=== PATIENT | male | born 1975 | race Hispanic/Latino ===

== ENCOUNTER 2019-10-28 23:45 | Emergency (ER) | payer MEDICARE, MEDICAID, SELFPAY ==
--- NOTE | ~2019-10-28 | XR_ITS ---
EXAMINATION: XR chest 2V DATE: 10/29/2019 00:43 INDICATION: Chronic cough TECHNIQUE: PA and lateral views of the chest are obtained. COMPARISON: 01/03/2019 FINDINGS: The lungs are free of acute opacities. There is no pleural effusion or pneumothorax. The ca rdiomediastinal silhouette is normal. The visualized bones and soft tissues are unremarkable. IMPRESSION: 1. No acute cardiopulmonary abnormality. Reviewed, dictated and finalized at location A.
[2019-10-28 23:49] VITALS: BP 160/97; PULSE 81; RESP 20; TEMP 36.6; O2SAT 100
--- NOTE | 2019-10-29 00:17 | ECG_ITS ---
Measurements Intervals [place] Rate: 70 P: 58 NM: 150 QRS: 52 QRSD: 101 T: 36 QT: 367 QTc: 398 Interpretive Statements SINUS RHYTHM INCOMPLETE RIGHT BUNDLE BRANCH BLOCK BORDERLINE ECG Electronically Signed On 10-29-2019 8:36:05 CDT by Jiame Mckeon D.O.
--- NOTE | 2019-10-29 00:19 | ED.WEAKNESS ---
HPI - Weakness General Chief complaint: Weakness Stated complaint: weakness Time Seen by Provider: 10/28/19 23:51 Source: patient Mode of arrival: ambulatory Limitations: no limitations History of Present Illness HPI Narrative: Patient is a 44-year-old male who presents to the emergency department with complaint of generalized weakness. Patient reports history of intermittent episodes of the symptoms for the past 3 to 4 years. Patient does not have a primary care physician and has not seen a primary care in quite some time. Patient reports having episode where he feels fatigued, weak, and dizzy. Patient checked his blood sugar and it was 102 at that time of the episode. Patient ate some crackers and drink some juice and feels a little bit better. Patient denies any chest pain. He does report a chronic smoker's cough which he states has felt worse over the past month. Patient states it almost feels as though his lungs have water in them and he notices some wheezing. Patient denies any fever. He is denying any chest pain, abdominal pain, nausea, or vomiting. Patient reports noticing a burning sensation on the top of his head that is only present when he touches the top of his head. He denies any pain otherwise or headache. Patient is feeling somewhat better at this time. Complaint: generalized weakness Duration: intermittent and improved Location: generalized Related Data Home Medications Medication Instructions Recorded Confirmed No Home Medications 10/28/19 10/28/19 Allergies Allergy/AdvReac Type Severity Reaction Status Date / Time No Known Allergies Allergy Verified 10/28/19 23:54 Review of Systems Review of Systems: All systems reviewed & are unremarkable except as noted in HPI and below Constitutional: Constitutional: Reports fatigue, Denies fever(s) and Reports weakness Cardiovascular: Cardiovascular: Denies chest pain Respiratory: Respiratory: Reports cough, Denies dyspnea and Reports wheezing Gastrointestinal: Gastrointestinal: Denies abdominal pain, Denies diarrhea, Denies nausea and Denies vomiting PMF Past Medical History Medical History (Updated 10/29/19 @ 03:42 by Akosua Mtz MD) No significant past medical history Social History Social History (Updated 10/29/19 @ 00:24 by Akosua Mtz MD) Smoking packs per day: 1 Smoking cigarettes per day: 20.0 Years smoked: 25 Smoking pack-years: 25.00 Smoking status: Current every day smoker Exam Const: General: cooperative, no acute distress and alert Nutritional Appearance: well nourished Orientation/consciousness: patient oriented x3 Limitations: no limitations HENMT: Mouth: Yes lip normal and Yes moist mucous membranes Resp: Effort & Inspection: normal respiratory effort Auscultation: clear to auscultation bilaterally Cardio: Rate: regular rate Rhythm: regular rhythm GI: GI Palp: Yes Soft to palpation and No Tenderness to palpation present (GI) Auscultation: normal bowel sounds Skin: General skin exam: normal color Neuro: General: patient oriented x3 Cognition (Neuro): normal cognition Speech: normal speech Extrem: General: normal to inspection, full ROM and no clubbing, cyanosis or edema Psych: Mental Status: mental status grossly normal Affect: normal affect Attitude: cooperative Course Course Emergency Course: Patient asymptomatic on reevaluation. Labs unremarkable including troponin x2. Patient advised to follow-up with on-call primary care physician for further evaluation of his recurrent symptoms. Patient stable for outpatient evaluation. Blood pressure improved on reevaluation. Vital Signs Vital signs: Vital Signs Temperature 97.8 F 10/28/19 23:49 Pulse Rate 81 10/28/19 23:49 Respiratory Rate 20 10/28/19 23:49 Blood Pressure 160/97 H 10/28/19 23:49 Pulse Oximetry 100 10/28/19 23:49 Temperature 97.8 F 10/28/19 23:49 Pulse Rate 60 10/29/19 02:41 Resp
[2019-10-29 00:22] VITALS: BP 145/90; PULSE 71
[2019-10-29 00:24] VITALS: BP 152/96; PULSE 72
[2019-10-29 00:25] VITALS: BP 136/102; PULSE 78
[2019-10-29 00:36] LABS: Basophils Absolute Auto 0.1 K/mm3 (0.0-0.1); Basophils Percent Auto 0.6 % (0.2-1.2); Eosinophils Absolute Auto 0.2 K/mm3 (0-0.3); Eosinophils Percent Auto 2.9 % (0-4.4); Hematocrit 43.2 % (42.0-52.0); Hemoglobin 14.4 g/dL (14.0-18.0); Immature Granulocyte Absolute 0.03 K/mm3 (0.00-0.031); Immature Granulocyte Percent A 0.4 % (0-0.5); Lymphocytes Absolute Auto 2.45 K/mm3 (0.9-3.2); Lymphocytes Percent Auto 29.5 % (18.3-44.2); Mean Corpuscular HGB Conc 33.3 g/dl (32-36); Mean Platelet Volume 11.4 fl (7.4-10.4); Monocytes Absolute Auto 0.5 K/mm3 (0.1-0.6); Monocytes Percent Auto 5.9 % (2.6-8.5); Neutrophils Percent Auto 60.7 % (45.5-73.1); Platelet Count Result 231 k/mm3 (150-375); Red Cell Distribution Width 13.5 % (11.5-14.5); White Blood Count 8.3 K/mm3 (4.5-10.0)
[2019-10-29 00:52] LABS: Alanine Aminotransferase 17 U/L (4-50); Albumin Level 4.5 g/dL (3.5-5.1); Alkaline Phosphatase 87 U/L (38-126); Aspartate Amino Transferase 30 U/L (17-59); Bilirubin,Total 0.3 mg/dL (0.2-1.3); Blood Urea Nitrogen 14 mg/dL (9-20); Calcium 9.2 mg/dL (8.4-10.2); Carbon Dioxide 29 mmol/L (22-30); Chloride 106 mmol/L (98-107); Estimated Glomerular Filt Rate > 60; Glucose 113 mg/dL (75-110); Magnesium 2.1 mg/dL (1.6-2.3); Sodium 141 mmol/L (137-145)
[2019-10-29 00:52] LABS: Add Urine Microscopic? NO; Appearance Urine Clear (Clear); Bilirubin Urine Negative (Negative); Blood Urine Negative (Negative); Color Urine Straw (Yellow); Glucose Urine UA Negative (Negative); Ketones Urine Negative (Negative); Leukocyte Esterase Ur Negative LEU/UL (Negative); Nitrate Urine Negative (Negative); Protein Urine Negative (Negative); Specific Grav Ur 1.009 (1.001-1.035); Urobilinogen Urine Negative mg/dL (<2.0)
[2019-10-29 01:04] LABS: NT Pro B Type Natriuretic Pept 26 PG/ML (5-100); Troponin I < 0.012 ng/mL (0.000-0.034)
[2019-10-29 01:44] VITALS: BP 137/83; PULSE 71; RESP 20; O2SAT 98
[2019-10-29 02:41] VITALS: BP 135/85; PULSE 60; RESP 20; O2SAT 99
[2019-10-29 03:23] LABS: Troponin I < 0.012 ng/mL (0.000-0.034)
[2019-10-29 03:53] VITALS: BP 136/85; PULSE 64; RESP 20; O2SAT 100
== END 2019-10-29 03:55 | disposition home or self-care (01) ==
PROVIDERS: Emergency Provider Emergency Medicine
DX: R42 Dizziness and giddiness (principal); R05 Cough; I45.10 Unspecified right bundle-branch block; F17.210 Nicotine dependence, cigarettes, uncomplicated
CPT/HCPCS: 36415; 71046; 80053; 81003; 83735; 83880; 84443; 84484; 85025; 93005; 99284

== ENCOUNTER 2020-06-25 21:16 | Emergency (ER) | payer MEDICARE, MEDICAID, SELFPAY ==
--- NOTE | ~2020-06-25 | CT_ITS ---
EXAMINATION: CT abdomen pelvis w con DATE: 06/25/2020 22:29 INDICATION: Left-sided abdominal pain. Rectal bleeding. TECHNIQUE: Computed tomography (CT) of the abdomen and pelvis was performed with 100 cc Omnipaque 350 intravenous contrast. The dose-length product was 929.74 mGy-cm. Automated exposure control and iter ative reconstruction technique were employed. COMPARISON: None. FINDINGS: Lung bases are unremarkable. Heart size normal. No significant pleural or pericardial effus ion. No significant vascular abnormality. There is mild inguinal lymphadenopathy, likely reactive. The liver, adrenal glands, pancreas, and kidneys are unremarkable. There is a 1 cm hypovascular mass of the spleen, likely benign. Gallbladder is contracted. Nonobstructive bowel gas pattern. No free ai r or free fluid. No focal bowel abnormalities. No acute osseous abnormality. IMPRESSION: 1. No acute abdominal abnormality. Reviewed, dictated and finalized at location A. ON FARMWORKER
--- NOTE | ~2020-06-25 | XR_ITS ---
EXAMINATION: XR chest 2V 06/25/2020 22:34 INDICATION: Chest pain protocol PROCEDURE: PA and lateral views of the chest COMPARISON: 10/29/2019 FINDINGS: The lungs are clear. The cardiomediastinal silhouette is within normal limits. There are no pleural effusions. There is no pneumothorax suspected. IMPRESSION: 1: NO ACUTE CARDIOPULMONARY DISEASE. Reviewed, dictated and finalized at location A. LEGAL SPECIALIST
--- NOTE | 2020-06-25 21:18 | ED.CHESTPAIN ---
HPI - Chest Pain General Chief Complaint: Chest Pain Stated Complaint: chest pain, rectal bleeding Time Seen by Provider: 06/25/20 21:18 Source: patient Mode of arrival: ambulatory Limitations: no limitations History of Present Illness HPI narrative: Patient is a 45-year-old male who presents for evaluation of bright red bleeding per rectum as well as chest pain. Patient states that he had some left-sided abdominal pain after eating this evening, and then felt the urge to have a bowel movement, when he went to the bathroom he noticed there was bright red blood in the toilet bowl and blood coating his stool. He denied dark or tarry stool. Patient states he then wiped and there was blood present on the toilet paper and running down his legs. Patient took a shower and began to experience some shortness of breath, chest pain. Patient states he felt he was seeing spots. He denied any diaphoresis, nausea, vomiting, back pain or shoulder pain. No arm pain or discomfort. Patient states symptoms lasted around 10 to 15 minutes, and resolved on the way to the hospital. Patient currently denies any chest pain. He denies any abdominal pain. No recent fever, chills or recent illnesses. No history of ibuprofen use, iron use, any anticoagulation. He states he does have a remote history of H. pylori many years ago from when he lived in [place] but no sequelae from that. He smokes but has no history of cardiac disease to his knowledge. He has never had a stress test or colonoscopy. Related Data Home Medications Medication Instructions Recorded Confirmed No Home Medications 10/28/19 10/28/19 Allergies Allergy/AdvReac Type Severity Reaction Status Date / Time No Known Allergies Allergy Verified 10/28/19 23:54 Review of Systems Review of Systems: Narrative: CONSTITUTIONAL: Denies fever, chills, or sweats. EYES: Denies visual changes, redness, or discharge. ENT: Denies rhinorrhea, congestion, sore throat, or otalgia. CARDIOVASCULAR: Denies current chest pain, palpitations, or edema. RESPIRATORY: Denies cough or dyspnea. GASTROINTESTINAL: Denies abdominal pain, nausea, vomiting, or diarrhea. GENITOURINARY: Denies dysuria or hematuria. SKIN: Denies rash or itching. MUSCULOSKELETAL: Denies back pain, joint pain, or myalgia. NEUROLOGIC: Denies headache, numbness, or weakness. [facility] Past Medical History Medical History (Updated 06/26/20 @ 00:55 by Lazara Wong MD) H. pylori infection Social History Social History Smoking packs per day: 1 Smoking cigarettes per day: 20.0 Years smoked: 25 Smoking pack-years: 25.00 Smoking status: Current every day smoker Gender identity (if verbalized by the patient): Male Exam Narrative: Exam Narrative: GENERAL: Awake, alert, conversant HEAD: Normocephalic, atraumatic. EYES: PERRLA and EOMI. ENT: Nares clear, no rhinorrhea or epistaxis. Mucous membranes moist. NECK: Supple. CHEST: No respiratory distress, breathing even and non labored HEART: Regular rate, sinus rhythm ABDOMEN:Non distended, non tender : Good rectal tone, no melena. No hemorrhoids. No fissures. No gross blood. No melanotic stool. Guaic negative. EXTREMITIES: Normal range of motion. No edema. SKIN: Warm, dry, no rash. NEURO:No focal deficits. Alert and oriented x3 Course Vital Signs Vital signs: Vital Signs Temperature 37.2 C 06/25/20 21:19 Pulse Rate 89 06/25/20 21:19 Respiratory Rate 17 06/25/20 21:19 Blood Pressure 176/97 H 06/25/20 21:19 Pulse Oximetry 100 06/25/20 21:19 Temperature 37.2 C 06/25/20 21:19 Pulse Rate 76 06/26/20 00:45 Respiratory Rate 20 06/26/20 00:45 Blood Pressure 125/113 H 06/26/20 00:45 Pulse Oximetry 98 06/26/20 00:45 MDM - Chest Pain MDM Narrative Medical decision making narrative: Patient presented for evaluation of bright red rectal bleeding and subsequently some chest jackson
[2020-06-25 21:19] VITALS: BP 176/97; PULSE 89; RESP 17; TEMP 37.2; O2SAT 100
--- NOTE | 2020-06-25 21:26 | ECG_ITS ---
Measurements Intervals [place] Rate: 87 P: 54 SC: 136 QRS: 41 QRSD: 102 T: 50 QT: 345 QTc: 416 Interpretive Statements SINUS RHYTHM INCOMPLETE RIGHT BUNDLE BRANCH BLOCK BASELINE WANDER- I, II, AVR, AVL, AVF, V1 BORDERLINE ECG Electronically Signed On 06-26-2020 7:34:13 AUTOMOTIVE LIGHT MECHANIC by Jaime Mckeon D.O.
--- NOTE | 2020-06-25 21:39 | ECG_ITS ---
Measurements Intervals [place] Rate: 77 P: 53 [place]: 139 QRS: 15 QRSD: 102 T: 12 QT: 363 QTc: 413 Interpretive Statements SINUS RHYTHM INCOMPLETE RIGHT BUNDLE BRANCH BLOCK BORDERLINE T WAVE ABNORMALITY- INFERIOR LEADS BORDERLINE ECG Electronically Signed On 06-26-2020 7:34:32 CASE MANAGERS by Jaime Mckeon D.O.
[2020-06-25] MEDS: ASPIRIN 81 MG CHEWABLE TABLET 324 MG PO (21:50)
[2020-06-25 21:55] LABS: Basophils Absolute Auto 0.1 K/mm3 (0.0-0.1); Basophils Percent Auto 0.5 % (0.2-1.2); Eosinophils Absolute Auto 0.2 K/mm3 (0-0.3); Eosinophils Percent Auto 2.4 % (0-4.4); Hematocrit 42.5 % (42.0-52.0); Hemoglobin 14.5 g/dL (14.0-18.0); Immature Granulocyte Absolute 0.04 K/mm3 (0.00-0.031); Immature Granulocyte Percent A 0.4 % (0-0.5); Lymphocytes Absolute Auto 2.48 K/mm3 (0.9-3.2); Lymphocytes Percent Auto 25.8 % (18.3-44.2); Mean Corpuscular HGB Conc 34.1 g/dl (32-36); Mean Corpuscular Hemoglobin 32.6 pg (26-34); Mean Corpuscular Volume 95.5 fl (80-100); Mean Platelet Volume 10.9 fl (7.4-10.4); Monocytes Absolute Auto 0.7 K/mm3 (0.1-0.6); Monocytes Percent Auto 6.9 % (2.6-8.5); Neutrophils Absolute Auto 6.2 K/mm3 (1.3-6.7); Platelet Count Result 211 k/mm3 (150-375); Red Blood Count 4.45 M/mm3 (4.6-6.20); Red Cell Distribution Width 13.4 % (11.5-14.5); White Blood Count 9.6 K/mm3 (4.5-10.0)
[2020-06-25 22:06] LABS: Prothrombin Time 13.6 Seconds (11.1-14.7)
[2020-06-25 22:09] LABS: Alanine Aminotransferase 30 U/L (4-50); Albumin Level 4.3 g/dL (3.5-5.1); Alkaline Phosphatase 83 U/L (38-126); Anion Gap 7 mmol/L (8-16); Aspartate Amino Transferase 34 U/L (17-59); Bilirubin,Total 0.5 mg/dL (0.2-1.3); Blood Urea Nitrogen 14 mg/dL (9-20); Calcium 9.3 mg/dL (8.4-10.2); Carbon Dioxide 30 mmol/L (22-30); Chloride 104 mmol/L (98-107); Estimated CRCL calculation 79 ml/min; Estimated Glomerular Filt Rate > 60; Glucose 105 mg/dL (75-110); Lipase 133 U/L (23-300); Potassium 3.9 mmol/L (3.4-5.0); Sodium 141 mmol/L (137-145)
[2020-06-25 22:21] LABS: Troponin I < 0.012 ng/mL (0.000-0.034)
[2020-06-25 22:25] LABS: Add Urine Microscopic? NO; Appearance Urine Clear (Clear); Bilirubin Urine Negative (Negative); Blood Urine Negative (Negative); Color Urine Yellow (Yellow); Glucose Urine UA Negative (Negative); Ketones Urine Negative (Negative); Leukocyte Esterase Ur Negative LEU/UL (Negative); Nitrate Urine Negative (Negative); Protein Urine Negative (Negative); Specific Grav Ur 1.013 (1.001-1.035); Squamous Epithelial Cell Urine Rare /hpf (Few); Urobilinogen Urine Negative mg/dL (<2.0)
[2020-06-25 22:54] VITALS: BP 139/100; PULSE 73; RESP 15; O2SAT 95
[2020-06-26 00:45] VITALS: BP 125/113; PULSE 76; RESP 20; O2SAT 98
[2020-06-26 00:52] LABS: Troponin I < 0.012 ng/mL (0.000-0.034)
[2020-06-26 01:15] VITALS: RESP 14
== END 2020-06-26 01:17 | disposition home or self-care (01) ==
PROVIDERS: Emergency Provider Emergency Medicine
DX: R07.89 Other chest pain (principal); K62.5 Hemorrhage of anus and rectum; F17.210 Nicotine dependence, cigarettes, uncomplicated
CPT/HCPCS: 36415; 71046; 74177; 80053; 81003; 83690; 84484; 85025; 85610; 85730; 93005; 99284; A9270; Q9967

== ENCOUNTER 2020-07-31 00:15 | Day surgery (SDC) | payer MEDICARE, MEDICAID, SELFPAY ==
[2020-07-18 11:04] VITALS: BMI 31.4
--- NOTE | 2020-07-18 11:29 | PC.NURSE ---
PT TESTED POSITIVE 05/27/2020 PT DENIES HAVING ANY SYMPTOMS-WAS TESTED DUE TO HAVING COVID AND BEING VERY SICK. PT UNDERSTANDS HE MUST BRING IN HIS DOCUMENTATION STATING HE HAD COVID ON DOS OR HE WILL BE CANCELED.
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
[2020-07-31 06:43] VITALS: BP 142/93; PULSE 75; RESP 16; TEMP 36.9; O2SAT 100; BMI 30.7
[2020-07-31] MEDS: LACTATED RINGERS 1,000 ML 150 ML IV CONT (06:56)
--- NOTE | 2020-07-31 08:11 | WPDHPUPDATE1 ---
History and Physical Update Update Date/Time: 07/31/20 08:11 History and Physical has been reviewed, including an updated exam of the patient. There are NO changes in the patient's condition. Risks, benefits, and alternatives have been discussed and questions answered. Patient agrees to proceed with procedure.
[2020-07-31 08:44] VITALS: BP 126/84; PULSE 66; RESP 19; O2SAT 98
[2020-07-31 08:54] VITALS: BP 150/100; PULSE 68; RESP 21; O2SAT 97
[2020-07-31 09:08] VITALS: BP 130/95; PULSE 54; RESP 17; O2SAT 100
== END 2020-07-31 09:20 | disposition home or self-care (01) ==
PROVIDERS: PCP Family Medicine; Visit Provider Internal Medicine Gastroenterology
PROC: 0DJ08ZZ Inspection of Upper Intestinal Tract, Via Natural or Artificial Opening Endoscopic (ICD-10-PCS; CPT 43235; principal; 2020-07-31 08:00)
DX: Z12.11 Encounter for screening for malignant neoplasm of colon (principal); K64.8 Other hemorrhoids; K92.1 Melena; K44.9 Diaphragmatic hernia without obstruction or gangrene; K29.50 Unspecified chronic gastritis without bleeding; Z87.19 Personal history of other diseases of the digestive system; I10 Essential (primary) hypertension; F31.9 Bipolar disorder, unspecified; F17.210 Nicotine dependence, cigarettes, uncomplicated; E66.9 Obesity, unspecified; Z68.30 Body mass index [BMI] 30.0-30.9, adult
CPT/HCPCS: 43239; G0121; 87081; 88305; J2001; J2704; J7120

== ENCOUNTER → 2021-07-10 02:58 | Outpatient (CLI) | payer OTHER, SELFPAY ==
[2021-07-10 12:41] LABS: Influenza Control Positive
[2021-07-10 20:56] LABS: SARS-CoV-2 RNA PCR Negative
== END ==
PROVIDERS: PCP Family Medicine; Visit Provider Physician Assistant
DX: R50.9 Fever, unspecified (principal); Z20.822 Contact with and (suspected) exposure to COVID-19
CPT/HCPCS: 87804; C9803; U0003; U0005

== ENCOUNTER 2021-08-24 21:46 | Observation (INO) | payer OTHER, SELFPAY ==
[2021-08-24] VITALS (16 sets, daily range): BP systolic 112–148; BP diastolic 83–96; PULSE 71–80; RESP 12–24; TEMP 36.9; O2SAT 96–100
--- NOTE | ~2021-08-24 | XR_ITS ---
EXAMINATION: XR chest 2V EXAM DATE: 08/24/2021 22:07 INDICATION: Lt Cp Radiates Into Lt Arm Down To Fingers X 1 Hr,Hx Htn TECHNIQUE: Frontal and lateral projections of the chest obtained and reviewed. Comparison is made to prior examination from 06/25/2020. FINDINGS: The lungs are clear. There are no pleural effusions. The cardiomediastinal silhouette is within normal limits. There is no pneumothorax suspected. The bones and soft tissues are unremarkab le. IMPRESSION: No acute cardiopulmonary findings. Reviewed, dictated and finalized at location A. IVING MANAGER
--- NOTE | ~2021-08-24 | NM_ITS ---
EXAMINATION: NM [facility] stress w perfusion DATE: 08/25/2021 12:41 INDICATION: Chest pain TECHNIQUE: Rest images were obtained following intravenous administration of 9.45 mCi Tc99m tetrofosm in (Myoview). The patient was infused intravenously with Lexiscan (Regadenoson). Then, 27.4 mCi Tc99m tetrofosmin (Myoview) was administered intravenously, and stress images were obtained in supine posi tion. Additional prone post stress imaging was obtained. Data was reconstructed into short axis and h orizontal and vertical long axis SPECT images. Gated SPECT images were also obtained. COMPARISON: None. FINDINGS: There is no definite reversible or fixed perfusion abnormality to suggest ischemia or infar ction. There is normal left ventricular chamber size, wall motion and ejection fraction. Left ventr icular ejection fraction measures 65%. IMPRESSION: 1. Normal myocardial perfusion at rest and during stress. 2. Left ventricular ejection fraction measuring 65%. Reviewed, dictated and finalized at location A. L AID
--- NOTE | 2021-08-24 21:50 | ECG_ITS ---
Measurements Intervals [place] Rate: 73 P: 59 [place]: 139 QRS: -1 QRSD: 106 T: 28 QT: 369 QTc: 407 Interpretive Statements SINUS RHYTHM INCOMPLETE RIGHT BUNDLE BRANCH BLOCK BASELINE ARTIFACT- I, II, III, AVR, AVL, AVF, V1-V6 BORDERLINE ECG Electronically Signed On 08-25-2021 7:56:12 DOUBLE SURFACE OPERATOR by Jaime Mckeon D.O.
[2021-08-24 22:07] LABS: Basophils Percent Auto 0.4 % (0.2-1.2); Eosinophils Absolute Auto 0.2 K/mm3 (0-0.3); Hematocrit 40.3 % (42.0-52.0); Hemoglobin 13.3 g/dL (14.0-18.0); Immature Granulocyte Absolute 0.02 K/mm3 (0.00-0.031); Immature Granulocyte Percent A 0.3 % (0-0.5); Lymphocytes Absolute Auto 1.91 K/mm3 (0.9-3.2); Lymphocytes Percent Auto 25.8 % (18.3-44.2); Mean Corpuscular Hemoglobin 31.9 pg (26-34); Mean Corpuscular Volume 96.6 fl (80-100); Mean Platelet Volume 10.3 fl (7.4-10.4); Monocytes Absolute Auto 0.4 K/mm3 (0.1-0.6); Monocytes Percent Auto 5.5 % (2.6-8.5); Neutrophils Absolute Auto 4.9 K/mm3 (1.3-6.7); Platelet Count Result 191 k/mm3 (150-375); Red Blood Count 4.17 M/mm3 (4.6-6.20); Red Cell Distribution Width 13.4 % (11.5-14.5); White Blood Count 7.4 K/mm3 (4.5-10.0)
[2021-08-24 22:20] LABS: Alanine Aminotransferase 18 U/L (4-50); Albumin Level 4.1 g/dL (3.5-5.1); Alkaline Phosphatase 75 U/L (38-126); Anion Gap 7 mmol/L (8-16); Aspartate Amino Transferase 26 U/L (17-59); Bilirubin,Total 0.4 mg/dL (0.2-1.3); Blood Urea Nitrogen 17 mg/dL (9-20); Carbon Dioxide 26 mmol/L (22-30); Chloride 109 mmol/L (98-107); Estimated CRCL calculation 64 ml/min; Estimated Glomerular Filt Rate > 60; Glucose 102 mg/dL (65-110); Potassium 3.7 mmol/L (3.4-5.0); Sodium 142 mmol/L (137-145)
[2021-08-24 22:32] LABS: NT Pro B Type Natriuretic Pept 18 pg/mL (5-100); Troponin I < 0.012 ng/mL (0.000-0.034)
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
--- NOTE | 2021-08-24 23:19 | PC.NURSE ---
Report received from ROSE Gates. This nurse assumed care of patient at this time.
[2021-08-24 23:51] LABS: SARS-CoV-2 RNA PCR Negative
[2021-08-25] VITALS (15 sets, daily range): BP systolic 115–128; BP diastolic 70–85; PULSE 58–85; RESP 16–20; TEMP 35.9–36.6; O2SAT 97–100; BMI 28.0
--- NOTE | 2021-08-25 | ECHO_ITS ---
Patient Info Name: Juliocesar Kilgore Age: 46 years : 1975 Gender: Male Ht: 72 in Wt: 220 lbs BSA: 2.27 m2 HR: 52 bpm BP: 121 / 70 mmHg Heart Rhythm: Sinus Rhythm Exam Date: 08/25/2021 8:29 AM Exam Location: [facility] Pulmonary Patient Status: Outpatient Admit Date: 08/24/2021 Staff Ordering Physician: Vee Cervantes MD Division Commander: Vincent Adler, RDCS, RT Attending Provider: Vee Cervantes MD Referring Physician: Helen TAFOYA; Exam Type: CA echo dop color flow w con Study Info Indications R07.9 - Chest pain, unspecified Complete two-dimensional, color flow and Doppler transthoracic echocardiogram is performed with contrast to opacify the left ventricle and to improve the deliniation of the left ventricle endocardial borders. Summary 1. Trivial amount of tricuspid valve insufficiency probably within physiologic normal limits. 2. Otherwise unremarkable echocardiogram. Left Ventricle Left ventricular chamber dimension is normal. Left ventricular systolic function is normal, estimated at 55-60%. The left ventricular diastolic function is normal. Right Ventricle Right ventricular chamber dimension is normal. Left Atria Left atrial chamber dimension is normal. Right Atria Right atrial chamber dimension is normal. Aortic Valve The aortic valve is normal. Pulmonic Valve The pulmonic valve is normal. Mitral Valve The mitral valve has normal leaflets. Tricuspid Valve The tricuspid valve leaflets are normal. There is trace tricuspid valve regurgitation. Pericardium/Pleural The pericardium appears normal. Aorta The aortic root size at the sinus of Valsalva is normal. Left Ventricular Outflow Tract Name Value Normal LVOT 2D LVOT Diameter 2.02 cm LVOT Doppler LVOT Peak Gradient 6 mmHg LVOT Mean Gradient 3 mmHg LVOT VTI 26.02 cm LVOT VTI/AV VTI Ratio 0.83 LVOT Stroke Volume 83.51 ml LVOT CO 4.80 l/min LVOT CI 2.11 L/min/m2 Mitral Valve Name Value Normal MV Doppler MV Decel [place] 281.34 cm/s2 MV PHT 0 s MV Area (PHT) 2.67 cm2 4.00-5.00 MV Diastolic Function MV E Peak Velocity 79.94 cm/s MV A Peak Velocity 55.60 cm/s MV E/A 1.44 MV Decel Time 0 s MV Annular TDI MV E/e' (Septal) 7.17 <=8.00 MV E/e' (Lateral)
--- NOTE | 2021-08-25 01:15 | ADMGEN ---
This patient, Juliocesar Kilgore, was admitted to IMU Room 211-01. Patient/family oriented to hospital policies and general routines including ID bracelet, bed and alarms, visiting hours, pain management, procedures, bathroom and other care routines, personal items, smoking policy, room service/diet, and visiting hours. Information on how to activate the Rapid Response Team has been discussed. Patient/Family are encouraged to report perceived risks to care and to ask questions if they do not understand what they are told or what they should do.
[2021-08-25 02:01] LABS: Troponin I < 0.012 ng/mL (0.000-0.034)
[2021-08-25 05:07] LABS: Troponin I < 0.012 ng/mL (0.000-0.034)
[2021-08-25] MEDS: PERFLUTREN LIPID MICROSPHERES 1.5 ML VIAL DILUTED TO 10 ML TOTAL VOLUME IV PUSH (08:44)
--- NOTE | 2021-08-25 08:44 | IVDEFINITY ---
Prior to administration of IV Definity the patient was educated on the risks and benefits of the imaging enhancing agent including potential adverse side effects. The patient verbalized understanding. Allergies were verified. No exclusion criteria were identified and at least one of the following inclusion criteria were met: 1) physician request, 2) patient technically difficult to image (per the [place] [employer]chocardi[employer] guidelines of two or more segments not discernable within the apical view), or 3) questionable left ventricular function. ?
[2021-08-25] MEDS: LANSOPRAZOLE ORAL SUSP 30 MG/10 ML ORAL.SUSP PO (09:49)
[2021-08-25] MEDS: lisinopriL 5 MG TABLET PO (09:50)
--- NOTE | 2021-08-25 13:44 | PM.DS ---
DS: Admitting Diagnosis Discharge Date 08/25/2021 Admitting Diagnosis chest pain DS: Discharge Diagnosis Discharge Diagnosis (1) Chest pain: Qualifiers: Chest pain type: unspecified Qualified Code(s): R07.9 - Chest pain, unspecified Code(s): R07.9 - Chest pain, unspecified Status: Acute Assessment and Plan: Admit to IMU [facility] in a.m. Supportive care EKG reviewed (2) HTN (hypertension): Qualifiers: Hypertension type: essential hypertension Qualified Code(s): I10 - Essential (primary) hypertension Code(s): I10 - Essential (primary) hypertension Status: Acute Assessment and Plan: Continue lisinopril Continue to monitor (3) Tobacco dependence: Code(s): F17.200 - Nicotine dependence, unspecified, uncomplicated Status: Acute Assessment and Plan: Nicotine patch as needed Patient consult about tobacco cessation (4) Bipolar disorder in partial remission: Code(s): F31.70 - Bipolar disorder, currently in remission, most recent episode unspecified Status: Acute Assessment and Plan: On no meds currently Appears in remission and stable (5) Gastroesophageal reflux disease: Code(s): K21.9 - Gastro-esophageal reflux disease without esophagitis Status: Acute Assessment and Plan: Continue PPI Follow-up in outpatient setting DS: Summary Hospital Course Reason for hospitalization: Chief Complaint: Chest pain Narrative: This is a 46-year-old male with past medical history significant for hiatal hernia, GERD, hypertension, tobacco dependence, patient smokes 1 pack of cigarettes daily current everyday smoker. Patient presents to the emergency room due to precordial chest pain with radiation to the neck shoulder and arm this was after he was walking around in [place] roughly 15 minutes left and went to his house does with no relieve of pain and decided to present to the emergency room. Patient was concerned for his heart although he states that he has similar pain before and he can not elevate this secondary to his hiatal hernia and GERD. Patient denies any dizziness any near-syncope or syncope no shortness of breath no cough no sputum production no fevers no rigors no chills no nausea no vomiting no leg swelling. Preliminary workup has been essentially nonrevealing. At the time of my visit patient was rating his pain at 0/10. Patient is been admitted for further evaluation management and treatment. Hospital Course: Patient presented with chest pain 3 sets of cardiac enzymes are negative there are no acute changes on EKG to further evaluate patient had a Lexiscan essentially normal no ischemic event, cardiac echo is no essentially normal ejection fraction and diastolic dysfunction, patient is clinically stable has no complaints of chest pain, but the patient home today Status at Discharge Functional status at discharge: independent ambulation Overall status at discharge: patient is back to baseline Time Spent with Patient Time attestation: Total time spent providing and/or coordinating discharge services: Patient was seen and examined at the time of the discharge Condition at discharge is stable Code status: Full code. Time spent preparing discharge summary, discharge medications, discussing discharge planning with egg caser and patient is 35 minutes. Time spent: Greater than 30 minutes Exam Narrative: Patient is comfortable, NAD HEENT: eyes are clear and none icteric LUNGS:CTA HEART: RR S1S2 ABD: BS+, Soft and nontender Lower extremities: no edema SKIN: nonjaundiced Neuro: grossly intact. DS: Data Data Completed and Pending Labs on day of discharge: Labs from last 24 hours 08/25/21 08/25/21 08/24/21 04:17 01:21 22:59 WBC RBC Hgb Hct MCV MCH MCHC RDW Plt Count MPV Immature Gran % (Auto) Neut % (Auto) Lymph % (Auto) [place] % (Auto) Eos % (Aut
--- NOTE | 2021-08-25 23:00 | EST_ITS ---
Patient Info Name: Juliocesar Kilgore Age: 46 years : 1975 Gender: Male Ht: 72 in Wt: 220 lbs BSA: 2.27 m2 HR: 59 bpm BP: 116 / 80 mmHg Heart Rhythm: Sinus Rhythm Exam Date: 08/25/2021 11:36 AM Exam Location: [facility] Patient Status: Inpatient Admit Date: 08/24/2021 Staff Ordering Physician: Vee Cervantes MD Attending Provider: Vee Cervantes MD Exercise Technologist: Krysten Eden CT Nurse: JEFFREY GALDAMEZ Exam Type: CA stress [facility] Study Info Indications R07.9 - Chest pain, unspecified Summary 1. Normal sinus rhythm - normal ECG. 2. No abnormal ST/T wave changes with exercise. 3. Clinically and electrocardiographically uneventful Lexiscan stress test. 4. Myocardial perfusion imaging exam to be dictated by the Radiology Department. Protocol: Lexiscan Stress ECG Details Stage: REST Duration (min): 4 min : 2 sec HR (bpm): 65 SBP (mmHg): 116 DBP (mmHg): 80 Stage: REST Duration (min): 5 min : 5 sec HR (bpm): 63 SBP (mmHg): 116 DBP (mmHg): 80 Stage: STAGE 1 Duration (min): 1 min : 0 sec HR (bpm): 96 SBP (mmHg): 128 DBP (mmHg): 85 Stage: RECOVERY Duration (min): 1 min : 0 sec HR (bpm): 94 SBP (mmHg): 128 DBP (mmHg): 85 Stage: RECOVERY Duration (min): 2 min : 0 sec HR (bpm): 90 SBP (mmHg): 128 DBP (mmHg): 85 Stage: RECOVERY Duration (min): 3 min : 0 sec HR (bpm): 82 SBP (mmHg): 126 DBP (mmHg): 77 Stage: RECOVERY Duration (min): 3 min : 38 sec HR (bpm): 84 SBP (mmHg): 126 DBP (mmHg): 77 Rest HR: 63 bpm Peak HR: 101 bpm Rest Sys BP: 116 mmHg Peak Sys BP: 128 mmHg Max Pred HR: 172 bpm % Max Pred HR: 59 % Target HR: 146 bpm Max RPP: 12,928 bpm*mmHg BP Response: Normal blood pressure response Termination Reason: Completed protocol Cardiac Symptoms: None Total Time: 1 min : 0 sec Rest Bustamante BP: 80 mmHg Peak Bustamante BP: 85 mmHg Total Dose: 0.4 mg Resting ECG Normal sinus rhythm - normal ECG. Stress ECG No abnormal ST/T wave changes with exercise. Report Signatures
== END 2021-08-25 14:41 | disposition home or self-care (01) ==
LOC: ANHED 23:16 → ANHIMU 08-25 01:49
PROVIDERS: Admitting Provider Internal Medicine; Emergency Provider Emergency Medicine; PCP Family Medicine; Visit Provider Family Medicine
DX: R07.9 Chest pain, unspecified (principal); K21.9 Gastro-esophageal reflux disease without esophagitis; I10 Essential (primary) hypertension; F31.70 Bipolar disorder, currently in remission, most recent episode unspecified; F17.210 Nicotine dependence, cigarettes, uncomplicated; K44.9 Diaphragmatic hernia without obstruction or gangrene
CPT/HCPCS: 36415; 71046; 78452; 80053; 83880; 84484; 85025; 93005; 93017; 96374; 99285; A9270; A9502; C8929; C9803; G0378; G0379; J2785; Q9957; U0003; U0005

== ENCOUNTER 2022-08-15 10:28 | Emergency (ER) | payer OTHER, SELFPAY ==
[2022-08-15] VITALS (16 sets, daily range): BP systolic 123–148; BP diastolic 81–103; PULSE 58–77; RESP 11–25; TEMP 36.1–36.6; O2SAT 96–100
--- NOTE | ~2022-08-15 | CT_ITS ---
EXAMINATION: CTA chest PE protocol DATE: 08/15/2022 15:17 INDICATION: covid, chest pain, syncope TECHNIQUE: Computed tomography angiography (CTA) of the chest was performed with 100 mL Omnipaque-350 intravenous contrast timed to evaluate the pulmonary arteries. Coronal maximum intensity projection 3D-reconstructions were created by the technologist. The dose-length product (DLP) was 495.06 mGy-cm. Automated exposure control and iterative reconstruction technique were employed. COMPARISON: X-ray chest, same date. FINDINGS: Lung parenchyma and airways: Scattered sub-6 mm pulmonary nodules. Minimal dependent atelectasis. Pleura: Unremarkable. Thoracic inlet, axillae and chest wall: Unremarkable. Thoracic aorta: Normal. Mediastinum: Bilateral hilar and subcarinal lymphadenopathy. Heart and pericardium: Normal. Coronary artery calcifications: Absent. Upper abdomen: No significant finding. Splenic cyst/hemangioma. Bones: No acute osseous finding. Severe degenerative change in the right shoulder. Pulmonary arteries: Study quality: Adequate. No pulmonary emboli detected.Dilated central pulmonary a rteries as can be seen with pulmonary arterial hypertension. IMPRESSION: No CT evidence of acute pulmonary embolus. Bilateral hilar and mediastinal lymphadenopathy. Multiple sub-6 mm pulmonary nodules, likely granulomas, which require no additional follow-up unless the patie nt is at high risk, in which case consider optional chest CT follow-up in 12 months. Reviewed, dictated and finalized at location K. RITY SUPPORT ANALYST IMPRESSION: No CT evidence of acute pulmonary embolus. Bilateral hilar and mediastinal lymp hadenopathy. Multiple sub-6 mm pulmonary nodules, likely granulomas, which requ vivek no additional follow-up unless the patient is at high risk, in which case c onsider optional chest CT follow-up in 12 months.
--- NOTE | ~2022-08-15 | XR_ITS ---
XR chest 2V DATE: 08/15/2022 12:40 INDICATION: Cough, syncope. Recent flu. TECHNIQUE: PA and lateral views COMPARISON: August 24, 2021 PA and lateral views FINDINGS: Normal heart size. No hilar or mediastinal enlargement. No pulmonary infiltrate or consolid ation, pleural effusion or pulmonary vascular congestion or pneumothorax. IMPRESSION: No active cardiopulmonary disease Reviewed, dictated and finalized at location A. TION DESIGN ENGINEER
--- NOTE | 2022-08-15 11:15 | ECG_ITS ---
Measurements Intervals [place] Rate: 63 P: 56 [place]: 144 QRS: 20 QRSD: 107 T: 14 QT: 420 QTc: 431 Interpretive Statements SINUS RHYTHM POSSIBLE LEFT ATRIAL ENLARGEMENT [-0.1mV P-WAVE IN V1/V2] IRBBB NONSPECIFIC ST & T-WAVE ABNORMALITY COMPARED TO ECG 08/24/2021 21:55:43 T-WAVE ABNORMALITY NOW PRESENT Electronically Signed On 08-16-2022 8:24:58 RECORDS TECH by Lucinda Lopez M.D.
[2022-08-15 13:02] LABS: Basophils Percent Auto 0.3 % (0.2-1.2); Eosinophils Percent Auto 0.3 % (0-4.4); Hematocrit 46.8 % (42.0-52.0); Hemoglobin 15.7 g/dL (14.0-18.0); Immature Granulocyte Absolute 0.02 K/mm3 (0.00-0.031); Immature Granulocyte Percent A 0.3 % (0-0.5); Lymphocytes Absolute Auto 1.25 K/mm3 (0.9-3.2); Lymphocytes Percent Auto 19.2 % (18.3-44.2); Mean Corpuscular HGB Conc 33.5 g/dl (32-36); Mean Corpuscular Hemoglobin 31.4 pg (26-34); Mean Corpuscular Volume 93.6 fl (80-100); Mean Platelet Volume 10.1 fl (7.4-10.4); Monocytes Absolute Auto 0.4 K/mm3 (0.1-0.6); Monocytes Percent Auto 6.8 % (2.6-8.5); Neutrophils Absolute Auto 4.8 K/mm3 (1.3-6.7); Neutrophils Percent Auto 73.1 % (45.5-73.1); Platelet Count Result 196 k/mm3 (150-375); Red Cell Distribution Width 13.8 % (11.5-14.5); White Blood Count 6.5 K/mm3 (4.5-10.0)
[2022-08-15 13:03] LABS: Glucose Point of Care 121 mg/dl (65-105)
[2022-08-15 13:13] LABS: Alanine Aminotransferase 21 U/L (6-50); Albumin Level 4.6 g/dL (3.5-5.1); Alkaline Phosphatase 84 U/L (38-126); Anion Gap 10 mmol/L (8-16); Aspartate Amino Transferase 30 U/L (17-59); Bilirubin,Total 0.4 mg/dL (0.2-1.3); Blood Urea Nitrogen 13 mg/dL (9-20); Calcium 8.8 mg/dL (8.4-10.2); Carbon Dioxide 26 mmol/L (22-30); Chloride 105 mmol/L (98-107); Estimated CRCL calculation 79 ml/min; Estimated Glomerular Filt Rate > 60; Glucose 119 mg/dL (65-110); Magnesium 2.2 mg/dL (1.6-2.3); Potassium 3.6 mmol/L (3.4-5.0); Sodium 141 mmol/L (137-145)
[2022-08-15 13:21] LABS: Influenza A QL RT-PCR Negative (Negative); Influenza B QL RT-PCR Negative (Negative); RSV RNA, RT-PCR Negative (Negative); SARS-CoV-2 RNA PCR Positive
[2022-08-15 13:25] LABS: NT Pro B Type Natriuretic Pept < 20 pg/mL (19.9-100); Troponin I < 0.012 ng/mL (0.000-0.034)
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
== END 2022-08-15 16:09 | disposition left against medical advice (07) ==
PROVIDERS: Emergency Provider Emergency Medicine; PCP Family Medicine
DX: U07.1 COVID-19 (principal); R55 Syncope and collapse; R91.8 Other nonspecific abnormal finding of lung field; I10 Essential (primary) hypertension; K21.9 Gastro-esophageal reflux disease without esophagitis; E66.3 Overweight; Z68.29 Body mass index [BMI] 29.0-29.9, adult; Z96.659 Presence of unspecified artificial knee joint; F17.210 Nicotine dependence, cigarettes, uncomplicated; Z86.16 Personal history of COVID-19; I45.10 Unspecified right bundle-branch block; R94.31 Abnormal electrocardiogram [ECG] [EKG]
CPT/HCPCS: 36415; 71046; 71275; 80053; 82948; 83735; 83880; 84484; 85025; 85380; 87637; 93005; 99284; Q9967

== ENCOUNTER 2022-09-02 08:58 | Outpatient (CLI) | payer OTHER, SELFPAY ==
--- NOTE | 2022-09-08 00:01 | WPDPFTINT ---
PFT Procedure Performed PFT Procedure Performed Spirometry with Pre/Post Bronchodilator Plethysmography (Lung Vol) Diffusing Cap (DLCO) Flow Vol Loop PFT Interpretation DOS: 09/02/2022 REQUESTING: NORBERTO Grullon REASON FOR TESTING: Dyspnea PULMONARY FUNCTION TESTS Results are reliable and reproducible. Spirometry: Pre bronchodilator FEV1 is 2.84 L, 84%, normal. Pre bronchodilator FVC is 3.96 L, 93%, normal. FEV1/ FVC is 72%, within the normal range. After bronchodilator there is 11% increase in the FEV1, 3.14 L and there is a 6% increase in the FVC, 4.19 L. Lung volumes: Total lung capacity 6.71 L, 109% predicted, normal. Residual volume is 2.72 L, 145% moderately increased consistent with air trapping. RV/TLC is increased 40%. Airway resistance 1.51, 118%, normal. Diffusion: DLCO is 21.1, 68%, mildly reduced. DLCO /VA is 3.74, 82%, normal. Flow volume loop: Normal. IMPRESSION: This study shows normal spirometry without statistically significant response to bronchodilator, moderate air trapping and mild diffusion impairment which that corrects for alveolar volume. Lack of response to bronchodilator should not preclude use if clinically indicated. No prior study for comparison. Judy Pedroza MD
== END 2022-09-02 08:59 | disposition home or self-care (01) ==
PROVIDERS: PCP Family Medicine; Visit Provider Physician Assistant Medical
DX: R07.9 Chest pain, unspecified (principal); R06.00 Dyspnea, unspecified
CPT/HCPCS: 94060; 94726; 94729

== ENCOUNTER 2023-02-03 08:36 | Outpatient (CLI) | payer OTHER, SELFPAY ==
[2023-02-03 09:16] LABS: Basophils Percent Auto 0.3 % (0.2-1.2); Eosinophils Absolute Auto 0.1 K/mm3 (0-0.3); Eosinophils Percent Auto 1.3 % (0-4.4); Hematocrit 43.9 % (42.0-52.0); Hemoglobin 14.4 g/dL (14.0-18.0); Immature Granulocyte Absolute 0.05 K/mm3 (0.00-0.031); Immature Granulocyte Percent A 0.5 % (0-0.5); Lymphocytes Percent Auto 13.8 % (18.3-44.2); Mean Corpuscular HGB Conc 32.8 g/dl (32-36); Mean Corpuscular Hemoglobin 31.9 pg (26-34); Mean Corpuscular Volume 97.1 fl (80-100); Mean Platelet Volume 10.3 fl (7.4-10.4); Monocytes Absolute Auto 0.4 K/mm3 (0.1-0.6); Monocytes Percent Auto 3.9 % (2.6-8.5); Neutrophils Absolute Auto 8.1 K/mm3 (1.3-6.7); Neutrophils Percent Auto 80.2 % (45.5-73.1); Platelet Count Result 208 k/mm3 (150-375); Red Blood Count 4.52 M/mm3 (4.6-6.20); Red Cell Distribution Width 14.3 % (11.5-14.5); White Blood Count 10.1 K/mm3 (4.5-10.0)
[2023-02-03 09:18] LABS: Appearance Urine Clear (Clear); Bilirubin Urine Negative (Negative); Blood Urine Negative (Negative); Color Urine Yellow (Yellow); Glucose Urine UA Negative (Negative); Ketones Urine Negative (Negative); Leukocyte Esterase Ur Negative LEU/UL (Negative); Nitrate Urine Negative (Negative); Protein Urine Negative (Negative); Specific Grav Ur 1.008 (1.001-1.035); Urobilinogen Urine 0.2 mg/dL (<2.0); pH Urine 5.5 (5.0-9.0)
[2023-02-03 09:27] LABS: Alanine Aminotransferase 25 U/L (6-50); Albumin Level 4.3 g/dL (3.5-5.1); Alkaline Phosphatase 93 U/L (38-126); Anion Gap 9 mmol/L (8-16); Aspartate Amino Transferase 28 U/L (17-59); Bilirubin,Total 0.3 mg/dL (0.2-1.3); Blood Urea Nitrogen 18 mg/dL (9-20); Calcium 8.9 mg/dL (8.4-10.2); Carbon Dioxide 23 mmol/L (22-30); Chloride 106 mmol/L (98-107); Estimated Glomerular Filt Rate > 60; Glucose 97 mg/dL (65-110); Sodium 138 mmol/L (137-145)
[2023-02-03 09:35] LABS: NT Pro B Type Natriuretic Pept < 20 pg/mL (19.9-100)
[2023-02-03 09:56] LABS: Add Urine Microscopic? NO
[2023-02-03 10:02] LABS: Rheumatoid Factor < 12.0 IU/ML (<12)
[2023-02-03 10:09] LABS: Hemoglobin A1C 5.9 % (<5.7)
[2023-02-03 11:05] LABS: Erythrocyte Sedimentation Rate 7 mm/hr (0-20)
[2023-02-05 13:02] LABS: NIL 0.02 IU/mL; Quantiferon TB Plus, 1T NEGATIVE (NEGATIVE)
[2023-02-06 22:42] LABS: Anti Cyclic Citrullinated Pept <16 Units (<20)
[2023-02-08 02:45] LABS: Angiotensin Converting Enzyme 8.6 U/L (9-67)
== END 2023-02-03 08:37 | disposition home or self-care (01) ==
PROVIDERS: PCP Family Medicine; Visit Provider Internal Medicine Critical Care Medicine
DX: R73.03 Prediabetes (principal); R73.9 Hyperglycemia, unspecified; R06.00 Dyspnea, unspecified; R59.0 Localized enlarged lymph nodes
CPT/HCPCS: 36415; 80053; 81003; 82164; 83036; 83880; 85025; 85652; 86038; 86200; 86430; 86480

== ENCOUNTER 2023-02-12 14:23 | Outpatient (CLI) | payer OTHER, SELFPAY ==
--- NOTE | ~2023-02-12 | CT_ITS ---
EXAMINATION:CT chest high resolution wo nh DATE: 02/12/2023 15:44 INDICATION: Sarcoidosis, unspecified. TECHNIQUE: Computed tomography (CT) of the chest was performed without intravenous contrast. Automate d exposure control and iterative reconstruction technique were employed. The dose-length product (DLP ) was 266.09 mGy-cm. COMPARISON: Chest CT 01/12/2023 FINDINGS: There is mild emphysema. The lungs demonstrate minimal atelectasis. There are a few scatter ed nodules measuring up to 3 mm, likely benign. Calcified right lung nodules and calcified right calderon r lymph nodes are consistent with old granulomatous disease. No pleural effusion. The heart size is n ormal. No pericardial effusion. There is mild thoracic spondylosis. There is mild chronic anterior we dging of T12 and L1 vertebral bodies. IMPRESSION: 1. No specific evidence of sarcoid. 2. Mild emphysema. Reviewed, dictated and finalized at location E.
--- NOTE | 2023-02-12 14:41 | ECHO_ITS ---
Patient Info Name: Juliocesar Kilgore Age: 47 years : 1975 Gender: Male Ht: 72 in Wt: 165 lbs BSA: 1.95 m2 HR: 78 bpm BP: 139 / 87 mmHg Technical Quality: Good Exam Date: 02/12/2023 3:56 PM Exam Location: [facility] Patient Status: Outpatient Admit Date: 02/12/2023 Staff Ordering Physician: Judy Pedroza MD Mannequin Maker: Adia Jimenes RDCS Attending Provider: Judy Pedroza MD Referring Physician: Kasia ESCOBAR; Exam Type: CA echo doppler color flow Study Info Indications R07.9 - Chest pain, unspecified Complete two-dimensional, color flow and Doppler transthoracic echocardiogram is performed. Summary 1. Complete two-dimensional, color flow and Doppler transthoracic echocardiogram is performed. 2. Left ventricular chamber dimension is normal. 3. Left ventricular systolic function is normal, estimated at 60-65%. 4. The left ventricular diastolic function is normal. 5. E/e' 7 is not elevated. 6. Left atrial chamber dimension is mildly enlarged. 7. There is trace tricuspid valve regurgitation. 8. No pulmonary hypertension, estimated pulmonary arterial systolic pressure is 35 mmHg. Left Ventricle E/e' 7 is not elevated. Left ventricular chamber dimension is normal. Left ventricular systolic function is normal, estimated at 60-65%. The left ventricular diastolic function is normal. Right Ventricle Right ventricular systolic function is normal and with normal TAPSE 2.4 cm. Right ventricular chamber dimension is normal. Left Atria Left atrial chamber dimension is mildly enlarged. Right Atria Right atrial chamber dimension is normal. Aortic Valve The aortic valve is trileaflet. There is no aortic valve stenosis. There is no aortic valve regurgitation. Pulmonic Valve There is no pulmonic regurgitation. Mitral Valve There is no mitral valve stenosis. There is no mitral valve regurgitation. Tricuspid Valve There is trace tricuspid valve regurgitation. No pulmonary hypertension, estimated pulmonary arterial systolic pressure is 35 mmHg. Pericardium/Pleural There is no pericardial effusion. Inferior Vena Cava Normal inferior vena cava with >50% collapse upon inspiration consistent with normal right atrial pressure, 5 mmHg. Aorta The aortic root size at the sinus of Valsalva is normal. Left Ventricular Outflow Tract Name Value Normal LVOT 2D LVOT Diameter 1.9 cm LVOT Doppler LVOT Peak Gradient 9 mmHg LVOT Mean Gradient 5 mmHg LVOT VTI 31 cm LVOT VTI/AV VTI Ratio 1.1 LVOT Stroke Volume 93 ml Pulmonic Valve Name Value Normal RVOT Doppler RVOT Peak Gradient 3 mmHg PV Doppler PV Peak Gradient 4 mmHg Mitral Valve
== END 2023-02-12 14:24 | disposition home or self-care (01) ==
PROVIDERS: PCP Family Medicine; Visit Provider Internal Medicine Critical Care Medicine
DX: J43.9 Emphysema, unspecified (principal); D86.9 Sarcoidosis, unspecified; R07.9 Chest pain, unspecified
CPT/HCPCS: 71250; 93306

== ENCOUNTER 2023-08-31 08:35 | Outpatient (CLI) | payer OTHER, SELFPAY ==
--- NOTE | 2023-08-31 09:10 | NEURO_ITS ---
Nerve Conduction Studies Anti Sensory Summary Table Stim Site NR Peak (ms) P-T Amp (?V) Site1 Site2 Delta-P (ms) Dist (cm) Khanh (m/s) Right Median Anti Sensory (2-3nd Digit) Wrist 3.5 17.4 Wrist 2-3nd Digit 3.5 14.0 40 Wrist 3.5 14.2 Wrist 2-3nd Digit 3.5 14.0 40 Right Radial Anti Sensory (Base 1st Digit) Wrist 2.3 10.3 Wrist Base 1st Digit 2.3 0.0 Right Ulnar Anti Sensory (5th Digit) Wrist 2.5 14.8 Wrist 5th Digit 2.5 14.0 56 Motor Summary Table Stim Site NR Onset (ms) O-P Amp (mV) Site1 Site2 Delta-0 (ms) Dist (cm) Khanh (m/s) Right Median Motor (Abd Poll Brev) Wrist 3.9 1.5 Elbow Wrist 5.6 29.0 52 Elbow 9.5 1.5 Right Ulnar Motor (Abd Dig Minimi) Wrist 2.7 6.0 A Elbow Wrist 6.0 31.0 52 A Elbow 8.7 4.2 F Wave Studies NR F-Lat (ms) L-R F-Lat (ms) Right Median (Mrkrs) (Abd Poll Brev) 29.69 Right Ulnar (Mrkrs) (Abd Dig Min) 30.89 EMG Side Muscle Nerve Root Ins Act Fibs Amp Dur Recrt Comment Right 1stDorInt Ulnar C8-T1 Nml Nml Nml Nml Nml Right Ext Indicis Radial (Post Int) C7-8 Nml Nml Nml Nml Nml Right Ext Digitorum Radial (Post Int) C7-8 Nml Nml Nml Nml Nml Right BrachioRad Radial C5-6 Nml Nml Nml Nml Nml Right PronatorTeres Median C6-7 Nml Nml Nml Nml Nml Right Abd Poll Brev Median C8-T1 Nml Nml Nml Nml Nml Right ABD Dig Min Ulnar C8-T1 Nml Nml Nml Nml Nml Right Biceps Musculocut C5-6 Nml Nml Nml Nml Nml Right Triceps Radial C6-7-8 Nml Nml Nml Nml Nml Right Deltoid Axillary C5-6 Nml Nml Nml Nml Nml MTDD
--- NOTE | 2023-08-31 11:00 | NEURO_ITS ---
Impression: # Complains of pain/numbness of right upper extremity/fingers. # Evolving right Carpal Tunnel Syndrome. # No ulnar neuropathy. # Normal needle/EMG exam. Nerve Conduction Studies Anti Sensory Summary Table Stim Site NR Peak (ms) P-T Amp (?V) Site1 Site2 Delta-P (ms) Dist (cm) Khanh (m/s) Right Median Anti Sensory (2-3nd Digit) Wrist 3.5 17.4 Wrist 2-3nd Digit 3.5 14.0 40 Wrist 3.5 14.2 Wrist 2-3nd Digit 3.5 14.0 40 Right Radial Anti Sensory (Base 1st Digit) Wrist 2.3 10.3 Wrist Base 1st Digit 2.3 0.0 Right Ulnar Anti Sensory (5th Digit) Wrist 2.5 14.8 Wrist 5th Digit 2.5 14.0 56 Motor Summary Table Stim Site NR Onset (ms) O-P Amp (mV) Site1 Site2 Delta-0 (ms) Dist (cm) Khanh (m/s) Right Median Motor (Abd Poll Brev) Wrist 3.9 1.5 Elbow Wrist 5.6 29.0 52 Elbow 9.5 1.5 Right Ulnar Motor (Abd Dig Minimi) Wrist 2.7 6.0 A Elbow Wrist 6.0 31.0 52 A Elbow 8.7 4.2 F Wave Studies NR F-Lat (ms) L-R F-Lat (ms) Right Median (Mrkrs) (Abd Poll Brev) 29.69 Right Ulnar (Mrkrs) (Abd Dig Min) 30.89 EMG Side Muscle Nerve Root Ins Act Fibs Amp Dur Recrt Comment Right 1stDorInt Ulnar C8-T1 Nml Nml Nml Nml Nml Right Ext Indicis Radial (Post Int) C7-8 Nml Nml Nml Nml Nml Right Ext Digitorum Radial (Post Int) C7-8 Nml Nml Nml Nml Nml Right BrachioRad Radial C5-6 Nml Nml Nml Nml Nml Right PronatorTeres Median C6-7 Nml Nml Nml Nml Nml Right Abd Poll Brev Median C8-T1 Nml Nml Nml Nml Nml Right ABD Dig Min Ulnar C8-T1 Nml Nml Nml Nml Nml Right Biceps Musculocut C5-6 Nml Nml Nml Nml Nml Right Triceps Radial C6-7-8 Nml Nml Nml Nml Nml Right Deltoid Axillary C5-6 Nml Nml Nml Nml Nml MTDD
== END 2023-08-31 08:36 | disposition home or self-care (01) ==
LOC: ANHNEURO 08:35
PROVIDERS: PCP Family Medicine; Visit Provider Family Medicine
DX: R20.2 Paresthesia of skin (principal); G56.01 Carpal tunnel syndrome, right upper limb
CPT/HCPCS: 95886; 95909

== ENCOUNTER 2024-06-25 19:57 | Emergency (ER) | payer OTHER, SELFPAY ==
--- NOTE | ~2024-06-25 | XR_ITS ---
XR chest 2V DATE: 06/25/2024 21:00 INDICATION: Cough and muscle pain for one month TECHNIQUE: PA and lateral views COMPARISON: 02/12/2023 CTA chest high resolution scan 08/15/2022 2 view chest FINDINGS: Normal heart size. No hilar or mediastinal enlargement. No pulmonary infiltrate or consolid ation, pleural effusion or Congestion or pneumothorax. Osteoporotic change at the glenohumeral joints. IMPRESSION: No active cardiopulmonary disease Reviewed, dictated and finalized at location A. CS INSTRUCTOR
[2024-06-25 20:00] VITALS: BP 175/110; PULSE 81; RESP 17; TEMP 36.4; O2SAT 100
--- NOTE | 2024-06-25 20:49 | ECG_ITS ---
Test Date: 2024-06-25 21:06:37 Measurements Intervals Moran Rate: 57 P: 56 ME: 155 QRS: 21 QRSD: 101 T: 30 QT: 393 QTc: 383 Interpretive Statements SINUS BRADYCARDIA POSSIBLE LEFT ATRIAL ENLARGEMENT [-0.1mV P WAVE IN V1/V2] POSSIBLE RIGHT VENTRICULAR CONDUCTION DELAY [RSR (QR) IN V1/V2] No previous ECG available for comparison Electronically Signed On 06-27-2024 14:49:50 [employer]IDE SALES [employer]PECT[employer] by Chavo Kenny M.D.
[2024-06-25 20:51] VITALS: O2SAT 100
[2024-06-25 21:17] LABS: Basophils Absolute Auto 0.1 K/mm3 (0.0-0.1); Basophils Percent Auto 0.7 % (0.2-1.2); Eosinophils Absolute Auto 0.4 K/mm3 (0-0.3); Eosinophils Percent Auto 5.2 % (0-4.4); Hematocrit 44.3 % (42.0-52.0); Immature Granulocyte Absolute 0.02 K/mm3 (0.00-0.031); Immature Granulocyte Percent A 0.2 % (0-0.5); Lymphocytes Percent Auto 24.6 % (18.3-44.2); Mean Corpuscular HGB Conc 33.9 g/dl (32-36); Mean Corpuscular Hemoglobin 31.8 pg (26-34); Mean Corpuscular Volume 93.9 fl (80-100); Mean Platelet Volume 10.2 fl (7.4-10.4); Monocytes Absolute Auto 0.6 K/mm3 (0.1-0.6); Monocytes Percent Auto 7.1 % (2.6-8.5); Neutrophils Percent Auto 62.2 % (45.5-73.1); Platelet Count Result 207 k/mm3 (150-375); Red Blood Count 4.72 M/mm3 (4.6-6.20); Red Cell Distribution Width 13.3 % (11.5-14.5); White Blood Count 8.1 K/mm3 (4.5-10.0)
[2024-06-25 21:29] LABS: Anion Gap 4 mmol/L (4-12); Blood Urea Nitrogen 13 mg/dL (9-20); Calcium 9.2 mg/dL (8.4-10.2); Carbon Dioxide 28 mmol/L (22-30); Chloride 107 mmol/L (98-107); Estimated CRCL calculation 77 ml/min; Estimated Glomerular Filt Rate > 60; Glucose 93 mg/dL (65-110); Potassium 3.9 mmol/L (3.4-5.0); Sodium 139 mmol/L (137-145)
[2024-06-25 21:32] LABS: INR 0.9; Prothrombin Time 12.5 Seconds (11.1-14.7)
[2024-06-25 21:33] LABS: Partial Thromboplastin Time 30.8 Seconds (22.3-36.8)
[2024-06-25 21:40] LABS: Troponin I < 0.012 ng/mL (0.000-0.034)
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
[2024-06-25 21:53] LABS: Influenza A QL RT-PCR Negative (Negative); Influenza B QL RT-PCR Negative (Negative); RSV RNA, RT-PCR Negative (Negative); SARS-CoV-2 RNA PCR Negative (Negative)
[2024-06-25] MEDS: predniSONE 20 MG TABLET 40 MG PO (21:57)
[2024-06-25 22:08] LABS: Troponin I < 0.012 ng/mL (0.000-0.034)
[2024-06-25 22:15] VITALS: PULSE 61; RESP 20
[2024-06-25 22:15] LABS: D Dimer 0.27 ug/mL (<0.48)
[2024-06-25] MEDS: IPRATROPIUM 0.5 MG/ALBUTEROL SULFATE 2.5 MG AMPUL.NEB 3 ML INHALATION (22:15)
[2024-06-25 22:23] VITALS: PULSE 66; RESP 20
== END 2024-06-25 23:31 | disposition home or self-care (01) ==
PROVIDERS: Emergency Provider Physician Assistant; PCP Family Medicine
DX: J44.1 Chronic obstructive pulmonary disease with (acute) exacerbation (principal); K21.9 Gastro-esophageal reflux disease without esophagitis; I10 Essential (primary) hypertension; F17.210 Nicotine dependence, cigarettes, uncomplicated; Z20.822 Contact with and (suspected) exposure to COVID-19
CPT/HCPCS: 36415; 71046; 80048; 84484; 85025; 85380; 85610; 85730; 87637; 93005; 94640; 99284; J7512